=== PATIENT | male | born 1955 | race Caucasian/White ===

== ENCOUNTER 2017-07-22 08:56 | Day surgery (SDC) | payer OTHER ==
[2017-07-22] MEDS ORDERED: IMMUNE GLOB,GAM CAPRYLATE(IGG) 20 GM IVPB ONE (10:00)
[2017-07-22 14:21] VITALS: BP 121/67; PULSE 62
[2017-07-22 14:28] VITALS: TEMP 98.2
[2017-07-23] MEDS ORDERED: IMMUNE GLOB,GAM CAPRYLATE(IGG) 40 GM, IMMUNE GLOBULIN (IgG) 10 GM IVPB SCH (10:00)
== END 2017-07-22 12:35 | disposition home or self-care (01) ==
LOC: JINFUSION 08:56
PROVIDERS: ATTEND Psychiatry & Neurology Psychiatry
PROC: 3E033GC Introduction of Other Therapeutic Substance into Peripheral Vein, Percutaneous Approach (ICD-10-PCS; principal; 2017-07-22)
DX: G61.81 Chronic inflammatory demyelinating polyneuritis (principal)
CPT/HCPCS: 96365; 96366

== ENCOUNTER 2017-07-23 09:04 | Day surgery (SDC) | payer OTHER ==
[2017-07-23 09:31] VITALS: TEMP 98
[2017-07-23] MEDS ORDERED: IMMUNE GLOB GAM CAPRYLATE IVPB ONE (10:00)
[2017-07-24 15:10] VITALS: BP 119/64; PULSE 71
== END 2017-07-23 14:45 | disposition home or self-care (01) ==
LOC: JINFUSION 09:04
PROVIDERS: ATTEND Psychiatry & Neurology Psychiatry
PROC: 3E033GC Introduction of Other Therapeutic Substance into Peripheral Vein, Percutaneous Approach (ICD-10-PCS; principal; 2017-07-23)
DX: G61.81 Chronic inflammatory demyelinating polyneuritis (principal)
CPT/HCPCS: 96365; 96366

== ENCOUNTER 2017-07-24 08:59 | Day surgery (SDC) | payer OTHER ==
[2017-07-24] MEDS ORDERED: IMMUNE GLOB GAM CAPRYLATE IVPB ONE (10:00)
[2017-07-24 14:47] VITALS: BP 111/68; PULSE 74; TEMP 98
== END 2017-07-24 14:49 | disposition home or self-care (01) ==
LOC: JINFUSION 08:59
PROVIDERS: ATTEND Psychiatry & Neurology Psychiatry
PROC: 3E033GC Introduction of Other Therapeutic Substance into Peripheral Vein, Percutaneous Approach (ICD-10-PCS; principal; 2017-07-24)
DX: G61.81 Chronic inflammatory demyelinating polyneuritis (principal)
CPT/HCPCS: 96365; 96366

== ENCOUNTER 2017-10-03 08:52 | Day surgery (SDC) | payer OTHER ==
[2017-10-03] MEDS ORDERED: IMMUNE GLOB GAM CAPRYLATE IVPB ONE (09:00)
[2017-10-03] MEDS ORDERED: IMMUNE GLOBULIN IVPB ONE (09:00)
[2017-10-03 16:59] VITALS: BP 123/71; PULSE 76; TEMP 98.3
== END 2017-10-03 17:58 | disposition home or self-care (01) ==
LOC: JINFUSION 08:52
PROVIDERS: ATTEND Psychiatry & Neurology Psychiatry
PROC: 3E033GC Introduction of Other Therapeutic Substance into Peripheral Vein, Percutaneous Approach (ICD-10-PCS; principal; 2017-10-03)
DX: G61.81 Chronic inflammatory demyelinating polyneuritis (principal)
CPT/HCPCS: 96365; 96366; J1561

== ENCOUNTER 2017-12-17 07:46 | Day surgery (SDC) | payer OTHER ==
[2017-12-17] MEDS ORDERED: IMMUNE GLOBULIN IVPB ONE ×2 (09:00→09:45)
[2017-12-17] MEDS ORDERED: IMMUNE GLOB GAM CAPRYLATE IVPB ONE ×2 (09:00→09:45)
[2017-12-17 14:51] VITALS: BP 112/62; PULSE 63; TEMP 98
== END 2017-12-17 12:10 | disposition home or self-care (01) ==
LOC: JINFUSION 07:46
PROVIDERS: ATTEND Psychiatry & Neurology Psychiatry
PROC: 3E033GC Introduction of Other Therapeutic Substance into Peripheral Vein, Percutaneous Approach (ICD-10-PCS; principal; 2017-12-17)
DX: G61.81 Chronic inflammatory demyelinating polyneuritis (principal)
CPT/HCPCS: 96365; 96366

== ENCOUNTER 2018-05-14 09:06 | Day surgery (SDC) | payer OTHER ==
[2018-05-14] MEDS ORDERED: ACETAMINOPHEN 325 MG TABLET (FP) ONE (09:28)
[2018-05-14] MEDS ORDERED: diphenhydrAMINE HCL 25 MG CAPSULE (FP) PO ONE ×2 (09:28→10:15)
[2018-05-14] MEDS ORDERED: ACETAMINOPHEN 325 MG TABLET (FP) PO ONE (10:15)
[2018-05-14] MEDS ORDERED: IMMUNE GLOB GAM CAPRYLATE IVPB ONE (10:45)
[2018-05-14 13:17] VITALS: TEMP 97.8
[2018-05-14 15:07] VITALS: BP 130/56; PULSE 78
== END 2018-05-14 15:09 | disposition home or self-care (01) ==
LOC: JINFUSION 09:06
PROVIDERS: ATTEND Psychiatry & Neurology Psychiatry
PROC: 3E033GC Introduction of Other Therapeutic Substance into Peripheral Vein, Percutaneous Approach (ICD-10-PCS; principal; 2018-05-14)
DX: G61.81 Chronic inflammatory demyelinating polyneuritis (principal)
CPT/HCPCS: 96365; 96366; J1561

== ENCOUNTER 2018-05-15 09:23 | Day surgery (SDC) | payer OTHER ==
[2018-05-15] MEDS ORDERED: diphenhydrAMINE HCL 25 MG CAPSULE (FP) PO ONE ×2 (09:48→10:00)
[2018-05-15] MEDS ORDERED: ACETAMINOPHEN 325 MG TABLET (FP) ONE (09:48)
[2018-05-15] MEDS ORDERED: ACETAMINOPHEN 325 MG TABLET (FP) PO ONE (10:00)
[2018-05-15] MEDS ORDERED: IMMUNE GLOB GAM CAPRYLATE IVPB ONE (10:30)
[2018-05-15 14:55] VITALS: TEMP 98
[2018-05-15 15:58] VITALS: BP 128/61; PULSE 75
== END 2018-05-15 15:58 | disposition home or self-care (01) ==
LOC: JINFUSION 09:23
PROVIDERS: ATTEND Psychiatry & Neurology Psychiatry
PROC: 3E033GC Introduction of Other Therapeutic Substance into Peripheral Vein, Percutaneous Approach (ICD-10-PCS; principal; 2018-05-15)
DX: G61.81 Chronic inflammatory demyelinating polyneuritis (principal)
CPT/HCPCS: 96365; 96366; J1561

== ENCOUNTER 2023-01-28 04:50 | Day surgery (SDC) | payer OTHER ==
[2023-01-24 12:33] VITALS: BMI 27.3
[2023-01-28 09:45] VITALS: TEMP 97
[2023-01-28 14:19] VITALS: BP 92/35; PULSE 65; RESP 100
== END 2023-01-28 10:55 | disposition home or self-care (01) ==
LOC: JASU-ENDO 04:50
PROVIDERS: ATTEND Student in an Organized Health Care Education/Training Program
PROC: 0DBN8ZX Excision of Sigmoid Colon, Via Natural or Artificial Opening Endoscopic, Diagnostic (ICD-10-PCS; principal; 2023-01-28 08:30)
DX: Z12.11 Encounter for screening for malignant neoplasm of colon (principal); K52.9 Noninfective gastroenteritis and colitis, unspecified; K57.30 Diverticulosis of large intestine without perforation or abscess without bleeding; K64.8 Other hemorrhoids
CPT/HCPCS: 82962; 88305-TC